=== PATIENT | female | born 1960 | race Caucasian/White ===

== ENCOUNTER → 2016-06-13 | Outpatient (CLI) | payer BC ==
[~2016-06-13] MED LIST: AROMASIN25 MG; ATIVAN 0.50.5 MG/TAB PO; BENTYL 20MG20 MG/TAB PO; CALCIUM + D 6001 TAB PO; CELEBREX 200MG200 MG PO; EFFEXOR XR75 MG/CAP PO; ENERGY; LASIX 20MG TABL20 MG PO; LEVOXYL0.05 MG PO; LIORESAL 1010 MG/TAB PO; LYRICA 50MG CAP50 MG PO; MOTRIN 600600 MG/TAB PO; NEURONTIN300 MG/CAP PO; NORCO 325 MG-7.1 TAB PO; PEPCID AC 10MG10 MG PO; PERCOCET 325 MG1 TA2 PO; PROBIOTIC FORMU1 CAP PO; SOMA250 MG PO; TOPAMAX 25MG25 M1 PO; [UNRECOGNIZED DRUG - OTHER]
== END ==
LOC: MC.RAD 09:20
DX: Z12.31 Encounter for screening mammogram for malignant neoplasm of breast (principal); D24.2 Benign neoplasm of left breast; Z85.3 Personal history of malignant neoplasm of breast

== ENCOUNTER → 2016-08-24 | Outpatient (CLI) | payer BC | LOC: COL.RAD 13:15 | DX: M51.17 Intervertebral disc disorders with radiculopathy, lumbosacral region (principal); M48.07 Spinal stenosis, lumbosacral region; M47.26 Other spondylosis with radiculopathy, lumbar region; G89.29 Other chronic pain; M25.552 Pain in left hip; M25.551 Pain in right hip ==

== ENCOUNTER 2016-11-25 08:30 | Outpatient (RCR) | payer BC | END 2016-11-28 | LOC: WSPT | DX: M48.06 Spinal stenosis, lumbar region (principal); M54.42 Lumbago with sciatica, left side; M25.512 Pain in left shoulder; M53.3 Sacrococcygeal disorders, not elsewhere classified ==

== ENCOUNTER 2017-02-24 08:00 | Outpatient (RCR) | payer BC | END 2017-02-27 | disposition home or self-care (01) | LOC: WSPT | DX: M54.42 Lumbago with sciatica, left side (principal); M54.41 Lumbago with sciatica, right side; G89.29 Other chronic pain ==

== ENCOUNTER 2017-05-10 20:59 | Emergency (ER) | payer BC ==
[~2017-05-10] VITALS: Ht 167.6 cm; Wt 90.9 kg
[2017-05-10 21:03] VITALS: PULSE 99; TEMP 96.8
[2017-05-10] MEDS ORDERED: PREDNISONE20 MG PO (22:29)
[2017-05-10 22:30] VITALS: BP 164/79
== END 2017-05-10 22:45 | disposition home or self-care (01) ==
LOC: COL.ER 20:59
DX: T78.40XA Allergy, unspecified, initial encounter (principal); F17.210 Nicotine dependence, cigarettes, uncomplicated; Z87.19 Personal history of other diseases of the digestive system
CPT/HCPCS: J1200; J2930; J7040

== ENCOUNTER → 2017-06-06 | Outpatient (RCR) | payer BC ==
[~2017-06-06] MED LIST changes: +PREDNISONE20 MG PO
== END | disposition home or self-care (01) ==
LOC: WSPT
DX: M54.41 Lumbago with sciatica, right side (principal); M54.42 Lumbago with sciatica, left side; G89.29 Other chronic pain

== ENCOUNTER → 2017-06-22 | Outpatient (CLI) | payer BC | LOC: MC.RAD 09:40 | DX: Z12.31 Encounter for screening mammogram for malignant neoplasm of breast (principal) ==

== ENCOUNTER 2017-07-03 19:52 | Emergency (ER) | payer BC ==
[2017-07-03 19:58] VITALS: TEMP 97.8
[2017-07-03] MEDS ORDERED: ATIVAN 0.50.5 MG/TAB PO (20:29)
[2017-07-03] MEDS ORDERED: MELATONIN3 M1 (21:16)
[2017-07-03 22:10] VITALS: BP 154/70; PULSE 52
== END 2017-07-03 22:10 | disposition home or self-care (01) ==
LOC: COL.ER 19:52
DX: R51 Headache (principal); H53.9 Unspecified visual disturbance; Z87.39 Personal history of other diseases of the musculoskeletal system and connective tissue; Z98.890 Other specified postprocedural states

== ENCOUNTER → 2017-07-11 | Outpatient (CLI) | payer BC ==
[~2017-07-11] MED LIST changes: +MELATONIN3 M1
== END ==
LOC: COL.RAD 07:30
DX: R51 Headache (principal); H53.9 Unspecified visual disturbance
CPT/HCPCS: A9585

== ENCOUNTER 2017-09-01 08:00 | Outpatient (RCR) | payer BC | END 2017-09-07 | disposition home or self-care (01) | LOC: WSPT | DX: M54.42 Lumbago with sciatica, left side (principal); M54.41 Lumbago with sciatica, right side; G89.29 Other chronic pain | CPT/HCPCS: G0283-GP ==

== ENCOUNTER 2017-10-20 08:45 | Outpatient (RCR) | payer BC ==
[2017-11-13] MEDS ORDERED: CEFTIN 250250 MG/TAB PO (00:52)
== END 2017-10-30 10:35 | disposition home or self-care (01) ==
LOC: WSPT 08:45
DX: M54.41 Lumbago with sciatica, right side (principal); M54.42 Lumbago with sciatica, left side

== ENCOUNTER 2019-10-11 10:00 | Outpatient (RCR) | payer BC ==
[~2019-10-11 10:00] MED LIST changes: +CEFTIN 250250 MG/TAB PO
== END 2019-11-19 | disposition home or self-care (01) ==
LOC: MKS.ESL.PT
DX: M79.7 Fibromyalgia (principal); M54.41 Lumbago with sciatica, right side

== ENCOUNTER 2020-02-25 07:39 | Day surgery (SDC) | payer BC ==
[~2020-02-25] VITALS: Ht 165.1 cm; Wt 101.1 kg
[2020-02-25] MEDS ORDERED: CELEBREX 200MG200 MG PO (08:04)
[2020-02-25] MEDS ORDERED: COZAAR 25MG25 MG/TAB PO (08:04)
[2020-02-25] MEDS ORDERED: AMITRIPTYLINE H25 M1 PO (08:05)
[2020-02-25 08:06] VITALS: BP 141/74; PULSE 77; TEMP 97.6
[2020-02-25 09:15] VITALS: BP 109/63; PULSE 71; TEMP 99.3
--- NOTE | 2020-02-25 09:15 | NUR ---
0915-Assisted patient with ambulating from cart to recliner and she did well. Connected to moniors and vitals remain stable. Dr. Taylor is in and speaking with patient regarding procedure findings. Questions addressed. 0925-Given apple juice to drink per request. She is doing well and denies having any pain or nausea.
[2020-02-25 09:30] VITALS: BP 129/77; PULSE 57; TEMP 98.5
--- NOTE | 2020-02-25 09:30 | NUR ---
0930-Patient continues doing well and vitals are stable. She tolerated apple juice without any nausea or vomiting. Declines wanting any food as she is "going to [employer] for a muffin." Sitting upright in recliner and listening to Footnote music. 0945-IV site dc'd and tip of catheter intact. No active bleeding noted. Gauze and tape applied. Discussed discharge instructions with her and given a copy for her to take home. She denies having any further questions or concerns at this time. She is getting dressed and ready for discharge home.
--- NOTE | 2020-02-25 10:00 | NUR ---
0955-Patient is dressed and ready for discharge home. Taken via wheelchair down to patient entrance and assisted into private vehicle with her . Belongings and discharge instructions with her.
== END 2020-02-25 10:00 | disposition home or self-care (01) ==
LOC: SDCO 07:39
DX: Z12.11 Encounter for screening for malignant neoplasm of colon (principal); K57.30 Diverticulosis of large intestine without perforation or abscess without bleeding; K64.0 First degree hemorrhoids; I10 Essential (primary) hypertension; Z85.3 Personal history of malignant neoplasm of breast; K21.9 Gastro-esophageal reflux disease without esophagitis; Z88.1 Allergy status to other antibiotic agents; F17.210 Nicotine dependence, cigarettes, uncomplicated; G89.29 Other chronic pain; Z20.828 Contact with and (suspected) exposure to other viral communicable diseases; G62.9 Polyneuropathy, unspecified
CPT/HCPCS: J2704; J7030

== ENCOUNTER 2020-03-16 16:46 | Outpatient (CLI) | payer BC ==
[~2020-03-16] VITALS: Ht 165.1 cm; Wt 102.6 kg
[~2020-03-16 16:46] MED LIST changes: +AMITRIPTYLINE H25 M1 PO; +COZAAR 25MG25 MG/TAB PO
[2020-03-16] MEDS ORDERED: PROAIR HFA0.09 MG/AC IH (17:20)
[2020-03-16] MEDS ORDERED: CYMBALTA 60MG60 MG PO (17:21)
[2020-03-16] MEDS ORDERED: AROMASIN25 MG PO (17:21)
[2020-03-16] MEDS ORDERED: FLONASEALLERGY NS (17:22)
[2020-03-16] MEDS ORDERED: PRILOSEC 20MG20 MG PO (17:23)
[2020-03-16 18:06] VITALS: BP 104/71; PULSE 56; TEMP 98.4
== END 2020-03-16 18:14 | disposition home or self-care (01) ==
LOC: EUO 16:46
DX: I95.9 Hypotension, unspecified (principal)
CPT/HCPCS: J7030

== ENCOUNTER → 2020-04-22 | Outpatient (CLI) | payer BC ==
[~2020-04-22] MED LIST changes: +AROMASIN25 MG PO; +CYMBALTA 60MG60 MG PO; +FLONASEALLERGY NS; +PRILOSEC 20MG20 MG PO; +PROAIR HFA0.09 MG/AC IH
== END ==
LOC: COL.RAD 14:15
DX: M43.12 Spondylolisthesis, cervical region (principal); M43.16 Spondylolisthesis, lumbar region; M54.16 Radiculopathy, lumbar region

== ENCOUNTER → 2020-05-06 | Outpatient (CLI) | payer BC ==
[~2020-05-06] MED LIST changes: +ASPIRIN E.C. 8181 MG PO; +BRILINTA90 MG PO; +COREG 6.256.25 MG/TA PO; +LIPITOR20 MG PO; -MELATONIN3 M1; +MELATONIN3 M1 PO; +TUMS ULTRA ST1000 MG PO
== END ==
LOC: COL.RAD 10:14
DX: M25.551 Pain in right hip (principal)
CPT/HCPCS: J3301; Q9967

== ENCOUNTER → 2020-07-27 | Outpatient (CLI) | payer BC | LOC: COL.RAD 14:18 | DX: M25.551 Pain in right hip (principal); M25.552 Pain in left hip | CPT/HCPCS: G0260; J3301 ==

== ENCOUNTER → 2020-08-10 | Outpatient (CLI) | payer BC | LOC: COL.RAD 09:16 | DX: M48.02 Spinal stenosis, cervical region (principal); M53.2X2 Spinal instabilities, cervical region; M50.121 Cervical disc disorder at C4-C5 level with radiculopathy; G95.9 Disease of spinal cord, unspecified; Z98.1 Arthrodesis status ==

== ENCOUNTER → 2020-08-12 | Outpatient (CLI) | payer BC | LOC: MHCPAIN 08:15 | DX: M54.5 Low back pain (principal); M53.3 Sacrococcygeal disorders, not elsewhere classified; M54.16 Radiculopathy, lumbar region | CPT/HCPCS: G0463 ==

== ENCOUNTER → 2020-08-20 | Outpatient (CLI) | payer BC | LOC: MHCPAIN 07:47 | DX: M47.817 Spondylosis without myelopathy or radiculopathy, lumbosacral region (principal); M54.16 Radiculopathy, lumbar region | CPT/HCPCS: J1100; Q9967 ==

== ENCOUNTER → 2020-09-08 | Outpatient (CLI) | payer BC | LOC: MHCPAIN 08:03 | DX: M47.816 Spondylosis without myelopathy or radiculopathy, lumbar region (principal); M54.5 Low back pain; M53.3 Sacrococcygeal disorders, not elsewhere classified | CPT/HCPCS: G0463 ==

== ENCOUNTER 2020-10-22 15:25 | Inpatient (IN) | payer BC ==
[2020-10-22] VITALS (13 sets, daily range): BP systolic 124–165; BP diastolic 47–103; PULSE 60–70; TEMP 97.8–98.3
[~2020-10-22] VITALS: Ht 165.1 cm; Wt 96.3 kg
[~2020-10-22 15:25] MED LIST changes: -ASPIRIN E.C. 8181 MG PO; -BRILINTA90 MG PO; -COREG 6.256.25 MG/TA PO; -LIPITOR20 MG PO; -TUMS ULTRA ST1000 MG PO
[2020-10-22 15:57] LABS: BASO # 0.1 (0.0-0.2); EOS # 0.3 (0.0-0.7); EOS % 5.4 % (0-4.0); GRAN # 2.9 (1.4-6.5); GRAN % 48.3 % (42.2-75.2); HEMOGLOBIN 13.5 g/dl (12.5-16.0); LYMPH % 33.7 % (20.0-51.0); MEAN CELL VOLUME 91 fl (80.0-100.0); MEAN CORPUSCULAR HEMOGLOBIN 29 pg (27.0-31.0); MEAN CORPUSCULAR HGB CONC 32 g/dl (33.0-37.0); MEAN PLATELET VOLUME 9.9 fl (7.4-10.4); MONO # 0.7 (0.1-0.6); MONO % 11.4 % (1.7-9.3); PLATELET COUNT 275 K/mm3 (130-400); RED BLOOD COUNT 4.63 M/mm3 (4.10-5.30); REDCELL DISTRIBUTION WIDTH-CV 14.1 % (11.5-14.5)
[2020-10-22 16:05] LABS: ALANINE AMINOTRANSFERASE 21 U/L (4-34); ALBUMIN 4.3 gm/dL (3.5-5.0); ALKALINE PHOSPHATASE 78 U/L (50-136); ANION GAP 7 mmol/L (7-16); AST,SGOT 39 U/L (15-37); BILIRUBIN,TOTAL < 0.1 mg/dL (0.0-1.0); BLOOD UREA NITROGEN 17 mg/dL (7-17); CALCIUM 10.1 mg/dL (8.4-10.2); CARBON DIOXIDE 28 mmol/L (22-30); CHLORIDE 101 mmol/L (98-107); CREATININE, serum 0.99 (0.52-1.25); GLUCOSE 95 mg/dL (74-106); SODIUM 137 mmol/L (137-145); TOTAL PROTEIN 8.1 gm/dL (6.4-8.2)
[2020-10-22 16:10] LABS: PROTHROMBIN TIME 11.2 SECONDS (9.7-12.8)
[2020-10-22 16:13] LABS: PARTIAL THROMBOPLASTIN TIME 32.6 SECONDS (26.0-37.0)
--- NOTE | 2020-10-22 16:19 | NUR ---
SEE MERGE FOR ALL MEDICATION ADMINISTRATION, INTRA AND POST SEDATION ASSESSMENTS
[2020-10-22 16:23] LABS: TROPONIN-I 0.149 ng/mL (0.000-0.035)
[2020-10-22] MEDS ORDERED: TUMS ULTRA ST1000 MG PO (18:20)
--- NOTE | 2020-10-22 23:38 | NUR ---
band has been removed no swelling or drainage to area. bandaid placed
[2020-10-23] VITALS (7 sets, daily range): BP systolic 97–135; BP diastolic 48–68; PULSE 54–64; TEMP 97.4–98.4
[2020-10-23 05:59] LABS: BASO # 0.1 (0.0-0.2); EOS # 0.3 (0.0-0.7); EOS % 5.3 % (0-4.0); GRAN # 3.2 (1.4-6.5); GRAN % 63.3 % (42.2-75.2); HEMATOCRIT 39.1 % (37.0-47.0); HEMOGLOBIN 12.5 g/dl (12.5-16.0); LYMPH % 19.6 % (20.0-51.0); MEAN CELL VOLUME 91 fl (80.0-100.0); MEAN CORPUSCULAR HEMOGLOBIN 29 pg (27.0-31.0); MEAN CORPUSCULAR HGB CONC 32 g/dl (33.0-37.0); MEAN PLATELET VOLUME 9.8 fl (7.4-10.4); MONO # 0.5 (0.1-0.6); MONO % 10.2 % (1.7-9.3); PLATELET COUNT 224 K/mm3 (130-400); REDCELL DISTRIBUTION WIDTH-CV 14.3 % (11.5-14.5)
[2020-10-23 06:12] LABS: CALCIUM 9.1 mg/dL (8.4-10.2); CHOLESTEROL RISK RATIO 5.1; CREATININE, serum 0.93 (0.52-1.25)
--- NOTE | 2020-10-23 08:34 | NUR ---
DR. MARRUFO AT BEDSIDE. ORDERS RECEIVED.
--- NOTE | 2020-10-23 08:43 | NUR ---
KERRY DU/ PRABHAKAR, AT BEDSIDE TO DO INITIAL ASSESSMENT SINCE ADMISSION. ORDERS RECEIVED.
--- NOTE | 2020-10-23 09:43 | NUR ---
SPOKE TO SONABDIAZIZ REGARDING PATIENT'S HISTORY, CURRENT CONDITION AND STATUS AT THE MOMENT. SAID HE WOULD CALL BACK WITH A MORE ACCURATE LIST OF MEDICATION. 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 BELIEVES THAT PATIENT HAS UNDIAGNOSED DIABETES AND THAT MOTHER OF PATIENT HAD HISTORY OF DIABETES. WILL BE CALLING BACK FOR MED REC.
--- NOTE | 2020-10-23 10:52 | NUR ---
DR. RADFORD AT BEDSIDE. DISCUSSED PLAN OF CARE AND COLLABORATED WITH [facility] REGARDING MEDICATIONS WELL.
--- NOTE | 2020-10-23 10:52 | NUR ---
DR. RADFORD AT BEDSIDE. ORDERED FOR NEURO CONSULT AND MRI TO BE DONE. WAS TOLD MRI MACHINE IS DOWN. WILL ASSESS FURTHER.
[2020-10-23 11:35] LABS: MAGNESIUM 2.1 mg/dL (1.6-2.3)
--- NOTE | 2020-10-23 12:33 | NUR ---
DR. ROD AT BEDSIDE. ORDER FOR EEG IN ADDITION TO MRI.
--- NOTE | 2020-10-23 14:48 | NUR ---
PATIENT AND SPOUSE HAD CONCERNS REGARDING HOME ANTIDEPRESSANTS/ANTIPSYCHOTICS BEING HELD UNTIL THEY COULD GET A PSYCHE EVAL. SPOKE TO DR. RADFORD REGARDING CONCERNS AND COMMUNICATED THAT THEY WOULD NOT BE ABLE TO SEE ANYONE ON FOR PHYCHE UNTIL AFTER THE WEEKEND BECAUSE THE RISK OF PROLONGED QTC IS TOO GREAT.
--- NOTE | 2020-10-23 14:52 | NUR ---
WENT TO COMMUNICATE WHAT DR. RADFORD HAD SAID REGARDING ANTIDEPRESSANT MEDICATION. PATIENT BEGAN TO COMPLAIN THAT SHE CAN'T CATCH HER BREATH. SATURATION LEVEL WAS 92%. REQUESTED A BREATHING TREATMENT. WILL CALL RESPIRATORY THERAPY.
--- NOTE | 2020-10-23 15:05 | NUR ---
RESPIRATORY THERAPY AT BEDSIDE, GIVING BREATHING TREATMENT.
--- NOTE | 2020-10-23 16:17 | NUR ---
idea worker met with patient and spouse to discuss discharge planning. Patient lives with spouse and plans to return home upon discharge. Patient's primary care provider is Dr Will. Patient denies difficutly obtaining her precriptions. Patient and spouse state they don't have advance directives. Worker provided information on advance directives and forms. Worker offered help with completion of documents if desired.
[2020-10-24] VITALS (55 sets, daily range): BP systolic 105–142; BP diastolic 51–79; PULSE 47–60; TEMP 97.8–98.5; O2SAT 64–100
--- NOTE | 2020-10-24 11:31 | NUR ---
ATTEMPTED TO CALL [employer] WHO IS [employer] FOR CARDIOLOGY IN REGARDS TO SEEING THE PATIENT TODAY WITH NO ANSWER. WILL TRY TO CALL AGAIN SOON.
--- NOTE | 2020-10-24 13:56 | NUR ---
Pt arrived to medical unit room 310 from ICU at 1320. Oriented pt and to room. Med rec updated. Pt A&Ox4. Heart RRR, tele monitor in place. Lungs CTA. Denies SOA. Does report chronic fibromyalgia pain and headache 08/13 at this time. Fiorecet given per orders. Pt denies further needs at this time. Call light in reach.
--- NOTE | 2020-10-24 20:51 | NUR ---
Assessment completed, alert and oriented. VS are stable, family is at bedside. Complains os pain in her neck,chest and back. Pain meds is at 2030 due and was given on time otherwise no further complains. She got sleeping pills and she said might ask another pain meds at midnight. Call light provided and within reach. Continue to follow.
[2020-10-25 00:27] VITALS: BP 136/56; PULSE 52; TEMP 97.9
--- NOTE | 2020-10-25 02:02 | NUR ---
Patient complain of beimg dry despite drinking a lot of water. She ask something for dryness of her throat and got the order of lozenges. Patient claimed that she feels like she is withdrawing from Cymbalta. RN said that I will pass it on in day shift so the Dr will aware of it. And she agreed about the plan.
[2020-10-25 04:10] VITALS: BP 137/85; PULSE 56; TEMP 98.5
--- NOTE | 2020-10-25 08:00 | NUR ---
Shift assessment complete. Pt resting in bed. Reports generalized fibromyalgia pain and migraine headache. Pain meds given as ordered. A&Ox4. Heart RRR. Lungs CTA. Denies further needs at this time. Call light in reach.
[2020-10-25] MEDS ORDERED: BRILINTA90 MG PO (08:35)
[2020-10-25] MEDS ORDERED: COREG 6.256.25 MG/TA PO (08:36)
[2020-10-25] MEDS ORDERED: COZAAR 25MG25 MG/TAB PO (08:36)
[2020-10-25] MEDS ORDERED: ASPIRIN E.C. 8181 MG PO (08:36)
[2020-10-25 08:53] VITALS: BP 101/53; PULSE 54; TEMP 97.8; TEMP 98.2
[2020-10-25 08:55] LABS: CALCIUM 8.4 mg/dL (8.4-10.2); CREATININE, serum 0.94 (0.52-1.25); MAGNESIUM 2.1 mg/dL (1.6-2.3); POTASSIUM 4.1 mmol/L (3.4-5.0)
[2020-10-25] MEDS ORDERED: EFFEXOR XR75 MG/CAP PO (11:25)
[2020-10-25] MEDS ORDERED: LIPITOR20 MG PO (11:27)
--- NOTE | 2020-10-25 12:30 | NUR ---
Discharge instructions discussed w/pt and , all questions answered. IV to right AC removed w/tip intact. Pt escorted out w/all belongings.
== END 2020-10-25 12:33 | disposition home or self-care (01) | DRG 247 ==
LOC: COL.ER 15:25 → ICU 17:33 → MEDICAL 10-24 13:37
PROVIDERS: Emergency Medicine; Internal Medicine Cardiovascular Disease; ADMIT Internal Medicine
PROC: 027034Z Dilation of Coronary Artery, One Artery with Drug-eluting Intraluminal Device, Percutaneous Approach (ICD-10-PCS; principal; 2020-10-22)
PROC: 4A023N7 Measurement of Cardiac Sampling and Pressure, Left Heart, Percutaneous Approach (ICD-10-PCS; 2020-10-22)
PROC: B2111ZZ Fluoroscopy of Multiple Coronary Arteries using Low Osmolar Contrast (ICD-10-PCS; 2020-10-22)
PROC: B2151ZZ Fluoroscopy of Left Heart using Low Osmolar Contrast (ICD-10-PCS; 2020-10-22)
DX: I21.4 Non-ST elevation (NSTEMI) myocardial infarction (principal); I51.81 Takotsubo syndrome; E78.5 Hyperlipidemia, unspecified; M54.2 Cervicalgia; G47.00 Insomnia, unspecified; F41.9 Anxiety disorder, unspecified; J45.909 Unspecified asthma, uncomplicated; I95.1 Orthostatic hypotension; G89.29 Other chronic pain; M79.7 Fibromyalgia; R73.03 Prediabetes; N18.2 Chronic kidney disease, stage 2 (mild); Z20.822 Contact with and (suspected) exposure to COVID-19; Z98.1 Arthrodesis status; Z90.89 Acquired absence of other organs; Z87.891 Personal history of nicotine dependence
CPT/HCPCS: 99222-AI; 99232-AI; 99233-AI; 99239; C1769; C1874; C1887; C9600; J0583; J1644; J2250; J3010; J3475; J7030

== ENCOUNTER 2021-01-11 13:43 | Outpatient (RCR) | payer BC ==
[~2021-01-11 13:43] MED LIST changes: +ASPIRIN E.C. 8181 MG PO; +BRILINTA90 MG PO; +COREG 6.256.25 MG/TA PO; +LIPITOR20 MG PO; +TUMS ULTRA ST1000 MG PO
== END 2021-01-18 08:37 | disposition home or self-care (01) ==
LOC: COL.CR 13:43
DX: Z48.812 Encounter for surgical aftercare following surgery on the circulatory system (principal); Z95.820 Peripheral vascular angioplasty status with implants and grafts

== ENCOUNTER 2021-03-05 21:32 | Emergency (ER) | payer BC ==
[~2021-03-05] VITALS: Ht 165.1 cm; Wt 90.9 kg
[2021-03-05 22:34] LABS: BASO % 0.6 % (0.0-2.0); EOS # 0.2 K/mm3 (0.0-0.7); EOS % 3.2 % (0.0-4.0); GRAN # 4.3 K/mm3 (1.4-6.5); HEMATOCRIT 37.9 % (37.0-47.0); HEMOGLOBIN 12.3 g/dl (12.5-16.0); LYMPH # 1.9 K/mm3 (1.2-3.4); LYMPH % 26.7 % (20.0-51.0); MEAN CELL VOLUME 92 fl (80.0-100.0); MEAN CORPUSCULAR HEMOGLOBIN 30 pg (27-31); MEAN CORPUSCULAR HGB CONC 33 g/dl (33.0-37.0); MEAN PLATELET VOLUME 9.6 fl (7.4-10.4); MONO # 0.6 K/mm3 (0.1-0.6); MONO % 8.2 % (1.7-9.3); PLATELET COUNT 249 K/mm3 (130-400); RED BLOOD COUNT 4.12 M/mm3 (4.10-5.30); REDCELL DISTRIBUTION WIDTH-CV 14.3 % (11.5-14.5)
[2021-03-05 22:53] LABS: ALANINE AMINOTRANSFERASE 24 U/L (0-55); ALBUMIN 3.7 gm/dL (3.5-5.0); ALKALINE PHOSPHATASE 59 U/L (40-150); ANION GAP 12 mmol/L (7-16); AST,SGOT 22 U/L (5-34); BILIRUBIN,TOTAL 0.2 mg/dL (0.2-1.2); BLOOD UREA NITROGEN 24 mg/dL (10-20); CALCIUM 8.9 mg/dL (8.4-10.2); CARBON DIOXIDE 20 mmol/L (22-29); CHLORIDE 110 mmol/L (98-107); GLUCOSE 107 mg/dL (70-99); POTASSIUM 3.8 mmol/L (3.5-4.5); SODIUM 142 mmol/L (136-145); TOTAL PROTEIN 6.9 gm/dL (6.2-8.1)
[2021-03-05 23:06] LABS: TROPONIN-I < 0.010 ng/mL (0.00-0.033)
[2021-03-05 23:49] VITALS: BP 106/59; PULSE 61; TEMP 98.1
== END 2021-03-05 23:49 | disposition home or self-care (01) ==
LOC: COL.ER 21:32
PROVIDERS: Student in an Organized Health Care Education/Training Program
DX: R07.89 Other chest pain (principal); Z95.9 Presence of cardiac and vascular implant and graft, unspecified; Z79.02 Long term (current) use of antithrombotics/antiplatelets

== ENCOUNTER → 2022-06-07 | Outpatient (CLI) | payer BC | LOC: MHCPAIN 15:37 | DX: M54.50 Low back pain, unspecified (principal); M53.3 Sacrococcygeal disorders, not elsewhere classified; G57.03 Lesion of sciatic nerve, bilateral lower limbs; R10.2 Pelvic and perineal pain; M79.18 Myalgia, other site | CPT/HCPCS: G0463 ==

== ENCOUNTER → 2022-06-21 | Outpatient (CLI) | payer BC | LOC: MHCPAIN 13:38 | DX: M79.18 Myalgia, other site (principal); G57.03 Lesion of sciatic nerve, bilateral lower limbs | CPT/HCPCS: J3301 ==

== ENCOUNTER → 2023-07-17 | Outpatient (CLI) | payer BC | LOC: MHCPAIN 09:32 | DX: M54.16 Radiculopathy, lumbar region (principal) ==

== ENCOUNTER → 2023-10-19 | Outpatient (CLI) | payer BC | LOC: MHCPAIN 11:04 | DX: M54.17 Radiculopathy, lumbosacral region (principal); M48.062 Spinal stenosis, lumbar region with neurogenic claudication; M51.34 Other intervertebral disc degeneration, thoracic region; M79.18 Myalgia, other site | CPT/HCPCS: G0463 ==

== ENCOUNTER → 2023-11-02 | Outpatient (CLI) | payer BC | LOC: COL.RAD 07:14 | DX: M51.17 Intervertebral disc disorders with radiculopathy, lumbosacral region (principal); M47.26 Other spondylosis with radiculopathy, lumbar region; M43.16 Spondylolisthesis, lumbar region; M24.28 Disorder of ligament, vertebrae; M51.16 Intervertebral disc disorders with radiculopathy, lumbar region; M51.14 Intervertebral disc disorders with radiculopathy, thoracic region; M47.27 Other spondylosis with radiculopathy, lumbosacral region; M48.07 Spinal stenosis, lumbosacral region; M47.24 Other spondylosis with radiculopathy, thoracic region; M48.04 Spinal stenosis, thoracic region ==

== ENCOUNTER → 2023-11-09 | Outpatient (CLI) | payer BC | LOC: MHCPAIN 14:34 | DX: M54.17 Radiculopathy, lumbosacral region (principal); M48.062 Spinal stenosis, lumbar region with neurogenic claudication; M43.16 Spondylolisthesis, lumbar region; M51.34 Other intervertebral disc degeneration, thoracic region | CPT/HCPCS: G0463 ==